=== PATIENT | male | born 1980 | race Caucasian/White ===

== ENCOUNTER 2018-11-11 16:40 | Inpatient (IN) ==
[2018-11-11] MEDS ORDERED: M.V.I.-12 10 ML, FOLIC ACID 1 MG, MAGNESIUM SULFATE 1 GM, THIAMINE 100 MG in NS 1,000 ML IV ONE (17:05)
[2018-11-11] MEDS ORDERED: ZOFRAN IM ONE (17:12)
[2018-11-11] MEDS ORDERED: ATIVAN IV ONE (17:17)
--- NOTE | 2018-11-11 17:19 | PROVIDER DOCUMENTATION ---
HPI-General Adult - General Chief Complaint: Alcohol Withdrawal Stated Complaint: ALCOHOL WITHDRAWAL Time Seen by Provider: 11/11/18 16:54 Source: patient Allergies/Adverse Reactions: Patient Allergies Allergy/AdvReac Type Severity Reaction Status Date / Time No Known Allergies Allergy Verified 11/11/18 17:13 Home Medications: Home Medication List Medication Instructions Recorded Confirmed Last Taken Type Bupropion X.l. [Wellbutrin Xl] 150 mg PO BID 02/04/16 11/11/18 07/06/18 History Fluoxetine HCl [Prozac] 20 mg PO DAILY 11/11/18 11/11/18 Unknown History - History of Present Illness -Gen Adult Nature of Presenting Problems: PATIENT C/O ALCOHOL WITHDRAWL SYMPTOMS, NAUSEA, VOMITED 4 TIMES, SHAKING, PALP ITATION, ANXIETY. HE SAID HE DRINK 1 BOTTLE OF WHISKY DAILY LAST TIME WAS YESTERDAY. REPORT HANGOVER SYMPTOMS AND VOMITING EVERY MORNING LATELY. DENIES ABDOMINAL PAIN, DIARRHEA OR CONSTIPATION. Review of Systems - Adult - REVIEW OF SYSTEMS - ADULT Constitutional: reports: no symptoms reported Eyes: reports: no symptoms reported Ears, Nose, Mouth & Throat: reports: no symptoms reported Cardiovascular: reports: palpitations Respiratory: reports: no symptoms reported Gastrointestinal: reports: nausea, vomiting. denies: abdominal pain Genitourinary: reports: no symptoms reported Musculoskeletal: reports: no symptoms reported Past History - Adult - PAST MEDICAL HISTORY-ADULT Review of Records: reports: Old Records Reviewed, Nursing Assessment Review, Medications Reviewed, Social history reviewed & non-contributory. Major Childhood Illnesses: reports: denies history Cardiovascular: reports: HTN Respiratory: reports: denies history Gastrointestinal: reports: denies history Genitourinary: reports: denies history Musculoskeletal: reports: denies history Neurological: reports: denies history Psychiatric: reports: depression Endocrine/Immune: reports: denies history Other Conditions: reports: denies history - PRIOR SURGERIES/PROCEDURES Surgical/Procedure History: reports: none - IMMUNIZATION STATUS Childhood Immunizations: See Nurse Assessment Flu Vaccine: See Nurse Assessment - FAMILY HISTORY Family History: reviewed, not pertinent Physical Exam-General - PHYSICAL EXAM-ADULT Initial Vital Signs Reviewed: Yes - CONSTITUTIONAL General Appearance: alert, mild distress - EYES Eyes: PERRL/EOMI - HEAD, EARS, NOSE, MOUTH & THROAT HENMT: normocephalic/atraumatic, moist mucous membranes, normal ENT inspection - NECK Neck: non-tender, full range of motion, supple - RESPIRATORY Respiratory: chest non-tender, lungs clear, normal breath sounds - CARDIOVASCULAR Cardiovascular: no edema, tachycardia. negative: no murmur - GASTROINTESTINAL (ABDOMEN) Abdominal Exam: normal bowel sounds, non tender, soft - MUSCULOSKELETAL Back Exam: normal inspection, no CVA tenderness - SKIN Integumentary: normal color, normal turgor - NEUROLOGIC Neurologic: grossly normal, other (tremor B/L UE) Progress - PLAN OF CARE/RESULTS Progress/Plan/Lab Results: Vital Signs - 8 hr 11/11/18 16:43 Temperature 98.5 F Pulse Rate 125 H Respiratory Rate 20 Blood Pressure 176/112 O2 Sat by Pulse Oximetry 97 Orders Category Date Time Status CBC WITH ELECTRONIC DIFF [HEME] Stat Lab 11/11/18 17:13 Ordered CMP [COMPREHENSIVE METABOLIC PANEL] [CHEM] Stat Lab 11/11/18 17:13 Ordered MAGNESIUM [CHEM] Stat Lab 11/11/18 17:13 Ordered PHOSPHORUS [CHEM] Stat Lab 11/11/18 17:13 Ordered URINALYSIS W/POSS RFLX CULT [URINALYSIS] Stat Lab 11/11/18 17:07 Uncollected URINE DRUG SCREEN Stat Lab 11/11/18 17:07 Uncollected Mvi [M.v.i.-12] 10 ml Med 11/11/18 17:05 Active Folic Acid 1 mg Magnesium Sulfate 1 gm Thiamine 100 mg 0.9% Sodium Chloride Inj [Ns] 1,000 ml IV NOW Ondansetron [Zofran] Med 11/11/18 17:12 Discontinued 8 mg IM NOW ONE Result Diagrams: 11/11/18 17:17 11/11/18 17:17 - REASSESSMENT Reassessment #1 Time Reassessed: 18:20 Status: improving (HR down from 125 to 101, slight shaking. patient ok with admission.) Reassessment #2 Time Reassessed: 19:41 Status: other (Patient admitted for .) - CONSULTS/PCP/HOSPITALIST Notification #1 *Consult/PCP/Hospitalist*: JAYSON Seay admitting for Hospitalist Time Discussed: 18:39 Consult Disposition: Admit (Hx, PE and patient care discussed. accepted.) Departure - Departure Date of Disposition Decision: 11/11/18 Time of Disposition Decision: 18:39 DIAGNOSIS: Hypomagnesemia Alcohol dependence with withdrawal Qualifiers: Complication of substance-induced condition: uncomplicated Qualified Code(s): F10.230 - Alcohol dependence with withdrawal, uncomplicated Disposition: ADMITTED INPATIENT 09 Certified Medical Emergency: Emergent Condition: Serious Referrals and Follow-Ups: None,PCP [Primary Care Provider] - - Critical Care Note This patient required my direct & personal management of CC.: No Attestation - Physician/ EULALIO Attestation Patient care was provided by Advanced Practice Provider:: No The physician spent face to face time with patient:: Yes Advanced Practice Provider documentation review:: Supervising physician onsite and consulted in the evaluation and care of this patient. The physician did have a face to face encounter with the patient.
[2018-11-11 17:27] LABS: BASO# 0.05 X1000 (0.0-0.2); BASO% 0.4 % (0.0-0.8); EOS# 0.05 X1000 (0.0-0.7); EOS% 0.4 % (0.0-10.0); HEMATOCRIT 37.8 % (42.0-52.0); HEMOGLOBIN 11.5 g/dL (14.0-18.0); IMM GRAN# 0.03 X1000 (0.0-0.04); IMM GRAN% 0.3 % (0.0-0.5); LYMPH# 0.88 X1000 (1.2-3.4); LYMPH% 7.9 % (20.5-51.1); MCH 21.7 PG (27-31); MCHC 30.4 g/dL (33-37); MCV 71.3 FL (81-99); MONO# 1.25 X1000 (0.11-0.59); MONO% 11.2 % (1.7-9.3); MPV 9.9 FL (7.4-10.4); NEUT# 8.86 X1000 (1.4-6.5); NEUT% 79.8 % (42.2-75.2); PLT 371 X1000 (130-400); RDW 19.5 % (11.5-14.5); WBC 11.12 X1000 (4.8-10.8)
[2018-11-11 17:39] LABS: AGAP 18; ALB/GLOB RATIO 1.4; ALBUMIN 4.6 g/dL (3.5-5.0); ALKALINE PHOSPHATASE 75 U/L (32-122); BUN 4 mg/dL (8-22); CALCIUM 8.4 mg/dL (8.8-10.2); CHLORIDE 92 mmol/L (98-107); COSMO 273; CREATININE 0.7 mg/dL (0.7-1.2); ESTIMATED GFR > 60; GLUCOSE 109 mg/dL (70-104); GOT 149 U/L (10-34); GPT 134 U/L (10-44); MAGNESIUM 1.2 mg/dL (1.5-2.7); PHOSPHORUS 3.3 mg/dL (2.7-4.5); POTASSIUM 3.2 mmol/L (3.5-5.1); SODIUM 138 mmol/L (136-145); TCO2 28 mmol/L (25-35); TOTAL BILIRUBIN 0.81 mg/dL (0.20-1.00); TOTAL PROTEIN 7.9 g/dL (6.3-8.3)
[2018-11-11] MEDS ORDERED: MAGNESIUM SULFATE 4 GM/S.W.I. 4 GM/100 ML IVPB IV ONE (17:47)
[2018-11-11 18:13] LABS: AMYLASE 121 U/L (20-200)
[2018-11-11 18:19] LABS: LIPASE 58 U/L (13-60)
[2018-11-11 19:29] LABS: URINE SOURCE CATH
[2018-11-11 19:49] LABS: UR AMPHETAMINES QUAL NONE DETECTED (NONE DETECT); UR BARBITUATES QUAL NONE DETECTED (NONE DETECT); UR BENZODIAZEPIN QUAL NONE DETECTED (NONE DETECT); UR CANNABINOIDS QUAL NONE DETECTED (NONE DETECT); UR COCAINE QUAL NONE DETECTED (NONE DETECT); UR METHADONE QUAL NONE DETECTED (NONE DETECT); UR OPIATES QUAL NONE DETECTED (NONE DETECT); UR OXYCODONE QUAL NONE DETECTED (NONE DETECT); UR PCP QUAL NONE DETECTED (NONE DETECT)
[2018-11-11 20:15] LABS: BILIRUBIN URINE NEGATIVE (NEGATIVE); BLOOD URINE NEGATIVE (NEGATIVE); COLOR YELLOW; GLUCOSE URINE NEGATIVE (NEGATIVE); KETONE URINE 10 mg/dL (NEGATIVE); LEUKOCYTES URINE NEGATIVE (NEGATIVE); NITRITE URINE NEGATIVE (NEGATIVE); PH URINE 7.5; PROTEIN URINE 50 mg/dL (NEGATIVE); TURBIDITY URINE CLEAR (CLEAR); UROBILINOGEN URINE 4 mg/dL (NORMAL)
[2018-11-11 20:20] LABS: PTT 28.9 Seconds (22.3-41.8)
[2018-11-11 20:20] LABS: UR EPITHELIAL CELLS <10 /HPF (<10); URINE BACTERIA NEGATIVE /HPF; URINE RBC <10 /HPF (<10); URINE WBC <10 /HPF (<10)
[2018-11-11 20:36] LABS: URINE CASTS NONE SEEN; URINE CRYSTALS NONE SEEN; URINE SMALL ROUND CELLS NONE SEEN; URINE YEAST NONE SEEN
[2018-11-11] MEDS ORDERED: TYLENOL PO PRN (21:39)
[2018-11-11] MEDS ORDERED: PHENERGAN IV PRN (21:39)
[2018-11-11] MEDS ORDERED: SODIUM CHLORIDE 0.9% INJ PRN (21:39)
[2018-11-11] MEDS ORDERED: SODIUM CHLORIDE 0.9% INJ SCH (21:45)
[2018-11-11] MEDS ORDERED: KLOR-CON PO ONE (21:52)
[2018-11-11] MEDS: LIBRIUM PO SCH (22:41)
[2018-11-11] MEDS: PROTONIX IV SCH (22:41)
[2018-11-11] MEDS: ATIVAN IV PRN (23:40)
--- NOTE | 2018-11-12 00:31 | HISTORY AND PHYSICAL ---
PRIMARY CARE PROVIDER: [place] in [place]. DATE AND TIME: 11/11/2018 at 2000. CHIEF COMPLAINT: Alcohol withdrawal. HISTORY OF PRESENT ILLNESS: Mr. Carmona is a 38-year-old, male, in the past medical history most notable for depression, anxiety, and alcohol abuse. He presented to the ER this evening with reports that he is wanting to quit drinking, though is experiencing withdrawal symptoms of having nausea, vomiting, and tremors. The patient states that since age 29 he has been abusing alcohol. He was admitted in January 2018 for alcohol withdrawal, and after being discharged he did quit drinking for a period of approximately month and a half, though unfortunately, did start back drinking. The patient states that he normally takes Wellbutrin and Prozac, though his physician at the [place] after his alcohol withdrawal treatment did reduce the dose of his Prozac. The patient states that he did try to get his physician to increase his dosage back up to his previous amount, though unfortunately, his physician would not do this. He states that since that time he feels as though his medication dosages need to be adjusted and he has been self-medicating with alcohol to cope with this. He initially did drink lesser amounts of alcohol daily, though at this time he drinks 750 mL of whiskey daily. He denies any other psychiatric history besides his depression and anxiety. He denies any inpatient treatment for psychiatric illness. He denies any previous self-harm or attempted suicide. He also denies any current suicidal or homicidal ideations. The patient states that his last drink was at midnight last night, November 10. Other than his reported symptoms, as previously mentioned, the patient states that he does have nausea and vomiting frequently on a daily basis, up to a couple to several times a day, though he denies any hematemesis, hematochezia or melena. He denies any previous known history of gastrointestinal bleeding. Upon evaluation in the ER, the patient was noted to be having nausea, he was very shaky as well. The patient is very cooperative. He was alert and oriented to person, place, time, situation, was able to answer and follow commands appropriately. He did have some mild electrolyte abnormalities with a potassium of 3.2 and a magnesium of 1.2. This is currently being replaced in the ER. He received a banana bag as well as some Ativan in the ER and states that his symptoms have improved at this time. The patient will be placed inpatient admission for further treatment and evaluation. REVIEW OF SYSTEMS: A 14-point review of systems was conducted with the patient and all were negative, except for pertinent positives mentioned in above HPI. PAST MEDICAL HISTORY: 1. Anxiety. 2. Depression. 3. Alcohol abuse. PAST SURGICAL HISTORY: The patient denies any previous surgeries. SOCIAL HISTORY: He denies any previous tobacco or illicit drug use, though he does, as previously mentioned in above HPI, drink at this time 750 mL of whiskey daily. He has been abusing alcohol since age 29. 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 FAMILY HISTORY: Positive for his mother having a history of polycythemia vera and an unknown cancer many years ago. His father has a history of diabetes mellitus. He does have a sister who also has diabetes mellitus, and a younger brother who is healthy. ALLERGIES: Patient has no known allergies. HOME MEDICATIONS: 1. He takes Wellbutrin XL 150 mg p.o. b.i.d. 2. Prozac 20 mg p.o. daily. DIAGNOSTIC DATA/LABORATORY RESULTS: White blood cell count is 11,120, hemoglobin 11.5, hematocrit 37.8, platelet count is 371,000. PT 14, INR 1, PTT is 28.9. Sodium 138, potassium 3.2, chloride 92, serum bicarb is 28, BUN 4, creatinine 0.7. Glucose 109, calcium 8.4, phosphorus 3.3, magnesium 1.2. Liver function tests are within normal limits, except for AST and ALT are both elevated some. Amylase 121, lipase 58. Urinalysis was obtained via catheter, was positive for protein, ketones, though was negative for glucose, blood, nitrites, leukocytes, white blood cells, and bacteria. Urine drug screen was negative. EKG showed a normal sinus rhythm, though was noted to have a prolonged QT with a QTc of 490. He did have a ventricular rate of 100. PHYSICAL EXAMINATION: VITAL SIGNS: Temperature 98.5 degrees, heart rate 100, blood pressure 142/105, oxygen saturation was 96% room air, respirations were 18. GENERAL: Mr. Carmona is a pleasant, 38-year-old, male, he was resting in the ER stretcher, though he was a little shaky. Upon examination, he was alert and oriented to person, place, time, and situation, and was able answer questions appropriately. HEENT: Head is atraumatic, normocephalic. Pupils are equal, round, reactive to light, were 4 mm bilaterally and brisk. Oral mucosa is moist. Oropharynx clear. NECK: Supple. Trachea midline. CARDIOVASCULAR: Patient has S1, S2. No murmurs, gallops, rubs appreciated, with a regular rate and rhythm. PULMONARY: Patient has symmetrical chest expansion bilaterally. Lung sounds are clear to auscultation in bilateral full bingham. ABDOMEN: Soft, nondistended, nontender. Bowel sounds are present in all 4 quadrants, were normoactive. EXTREMITIES: No cyanosis, clubbing, or edema noted. Pulse, motor, and sensory were intact in all extremities. Pedal pulses and radial pulses were 2+ bilaterally. INTEGUMENTARY: The patient's skin is pink, warm, and dry. NEUROLOGICAL: Patient is alert and oriented to person, place, time, and situation. He is able to move all extremities. He does have a slight tremor noted, though other than this, there did not appear to be any focal neurological deficits ASSESSMENT AND PLAN: 1. Alcohol withdrawal. For this we will place Ativan IV p.r.n. We will also place him on Librium 25 mg p.o. q.6 hours, and we will closely monitor him for any worsening signs of alcohol withdrawal. He will be placed in ICU for close monitoring. We will place him on continuous cardiac telemetry, and will monitor his cardiovascular status as well as his blood pressure closely. 2. Alcohol abuse. The patient has expressed that he does want to quit drinking. We have placed community mental health social worker and case management consults so the patient can obtain assistance with continuing possible outpatient treatment and counseling upon discharge. We will continue to discuss and correctional counselor/case manager the patient on the importance of alcohol cessation. 3. Gastrointestinal prophylaxis. Will be provided with Protonix 40 mg IV q.12 hours. 4. Deep vein thrombosis prophylaxis. Will be provided with sequential compression devises. The patient has been placed in ICU for close monitoring. We will repeat a CBC, CMP, magnesium and phosphorus tomorrow morning. We will do daily banana bags. Further orders and recommendations pending hospital course, diagnostic studies, and physician evaluation. Dictated by JAMI Alonso for Cipriano Alcantar MD I have performed a face to face diagnostic evaluation. Labs/ xrays - reviewed. Exam- chest- clear A/P- Alchohol withdrawal- Admit, supportive care, IV ativan prn. Dr. Alcantar cc: Cipriano Alcantar MD [facility]
[2018-11-12] MEDS: LIBRIUM PO SCH ×2 (04:56→09:17)
[2018-11-12] MEDS: ATIVAN IV PRN ×2 (06:10→09:17)
[2018-11-12 06:45] LABS: BASO# 0.04 X1000 (0.0-0.2); BASO% 0.5 % (0.0-0.8); EOS% 1.1 % (0.0-10.0); HEMOGLOBIN 10.5 g/dL (14.0-18.0); LYMPH# 1.12 X1000 (1.2-3.4); LYMPH% 12.7 % (20.5-51.1); MCH 21.7 PG (27-31); MCV 72.5 FL (81-99); MONO# 1.05 X1000 (0.11-0.59); MONO% 11.9 % (1.7-9.3); NEUT# 6.54 X1000 (1.4-6.5); NEUT% 73.8 % (42.2-75.2); PLT 311 X1000 (130-400); RBC 4.83 XMIL (4.7-6.1); RDW 19.3 % (11.5-14.5); WBC 8.85 X1000 (4.8-10.8)
[2018-11-12 06:58] LABS: AGAP 16; ALB/GLOB RATIO 1.3; ALBUMIN 3.8 g/dL (3.5-5.0); ALKALINE PHOSPHATASE 65 U/L (32-122); BUN 4 mg/dL (8-22); CALCIUM 8.1 mg/dL (8.8-10.2); CHLORIDE 97 mmol/L (98-107); COSMO 278; CREATININE 0.8 mg/dL (0.7-1.2); ESTIMATED GFR > 60; GLUCOSE 98 mg/dL (70-104); GOT 77 U/L (10-34); GPT 99 U/L (10-44); PHOSPHORUS 3.1 mg/dL (2.7-4.5); POTASSIUM 3.1 mmol/L (3.5-5.1); SODIUM 141 mmol/L (136-145); TCO2 28 mmol/L (25-35); TOTAL BILIRUBIN 1.12 mg/dL (0.20-1.00); TOTAL PROTEIN 6.7 g/dL (6.3-8.3)
[2018-11-12] MEDS ORDERED: POTASSIUM CHLORIDE 60 MEQ in NS 500 ML IV ONE (07:20)
[2018-11-12] MEDS ORDERED: M.V.I.-12 10 ML, FOLIC ACID 1 MG, MAGNESIUM SULFATE 1 GM, THIAMINE 100 MG in NS 1,000 ML IV SCH (09:00)
[2018-11-12] MEDS: PROTONIX IV SCH (09:17)
[2018-11-12 14:17] VITALS: BP 142/104
--- NOTE | 2018-11-12 22:04 | DISCHARGE SUMMARY ---
ADMISSION DATE: 11/11/2018 DISCHARGE DATE: 11/12/2018 FINAL DISCHARGE DIAGNOSES: 1. Alcohol withdrawal. 2. Acute alcohol intoxication. 3. Hypokalemia. 4. Depression. 5. Anxiety disorder. HOSPITAL COURSE: Mr. Carmona is a 38-year-old male with a history of heavy alcohol abuse who presented to the ER with concerns about being in withdrawal. The patient was admitted to the hospitalist service and placed in the medical ICU. He received Ativan as well as Librium to assist with his withdrawal symptoms. Also, the patient's potassium was replenished. The patient stated that he felt better and wanted to be discharged home. The patient was extensively counseled about the importance of alcohol cessation. He was also advised that if he was going to be on Librium he could not drink alcohol. The patient stated that he understood. DISCHARGE MEDICATIONS: 1. Librium taper. 2. Wellbutrin XL 150 mg p.o. twice a day. 3. Prozac 20 mg p.o. daily. DISCHARGE DIET: Low-sodium diet. ACTIVITY: As tolerated. FOLLOWUP INSTRUCTIONS: The patient has been advised to contact Alcoholics Anonymous for further assistance with alcohol cessation. cc: Holly Eddy MD
--- NOTE | 2018-11-14 10:34 | EKG Report ---
Test Performed on : 11/11/2018 8:41:11 PM Test Reason : ED. No order in [place] Blood Pressure : / mmHG Vent. Rate : 100 BPM Atrial Rate : 100 BPM P-R Int : 136 ms QRS Dur : 098 ms QT Int : 380 ms P-R-T Axes : 029 014 030 degrees QTc Int : 490 ms Normal sinus rhythm. Prolonged QT Abnormal ECG When compared with ECG of 14-FEB-2018 15:12, No significant change was found Unconfirmed Result
== END 2018-11-12 15:05 | disposition home or self-care (01) | DRG 897 ==
LOC: ED 16:40 → ICU 20:21 → SUATTDRO 20:21
PROVIDERS: ATTEND Internal Medicine
CPT/HCPCS: 80053; 80101; 80301; 80307; 80324; 80345; 80346; 80353; 80358; 80361; 80365; 81001; 82150; 83690; 83735; 83992; 84100; 84132; 85025; 85610; 85730; 93005; 96365; 96366; 96367; 96375; 99285; A9270; C9113; G0431; G0434; G0479; G0480; J2060; J2405; J3411; J3475; J3480; J7030; J7040; S0164

== ENCOUNTER 2019-05-28 00:05 | Inpatient (IN) ==
[2019-05-28] MEDS ORDERED: NS 1,000 ML IV ONE ×2 (00:38→00:43)
--- NOTE | 2019-05-28 00:43 | PROVIDER DOCUMENTATION ---
HPI-Abdominal Pain/GI Problem - General Chief Complaint: Vomiting Blood Stated Complaint: ALCOHOLIC/VOMITING BLOOD Time Seen by Provider: 05/28/19 00:38 Source: patient Allergies/Adverse Reactions: Patient Allergies Allergy/AdvReac Type Severity Reaction Status Date / Time No Known Allergies Allergy Verified 11/11/18 17:13 Home Medications: Home Medication List Medication Instructions Recorded Confirmed Last Taken Type Bupropion X.l. [Wellbutrin Xl] 150 mg PO BID 02/04/16 05/28/19 07/06/18 History Fluoxetine HCl [Prozac] 30 mg PO DAILY 11/11/18 05/28/19 Unknown History Hydroxyzine HCl 25 mg PO PRN PRN 05/28/19 05/28/19 Unknown History Methocarbamol 750 mg PO PRN PRN 05/28/19 05/28/19 Unknown History Naltrexone [Revia] 50 mg PO DAILY 05/28/19 05/28/19 Unknown History - History of Present Illness-ABD Nature of Presenting Problems: 38 yr old M, presents with several hour history of hematemesis following an abrupt end to a week's hx of binge drinking. The pt reports that he relapsed, and began binging last week, and tried to cut himself off today. Shortly after he began throwing up - first bloody content mixed with fluids he had tried to drink, then cristy red blood, then darker coffee ground material. The pat has not been able to keep anything down. He denies any chest or abdominal pain. # of Vomiting Episodes: 5 (multiple) Emesis Description: reports: red blood, coffee grounds Bruising or Bleeding Gums?: No Similar Symptoms Previously?: No Review of Systems - Adult - REVIEW OF SYSTEMS - ADULT Constitutional: reports: no symptoms reported Eyes: reports: no symptoms reported Ears, Nose, Mouth & Throat: reports: no symptoms reported Cardiovascular: reports: palpitations Respiratory: reports: no symptoms reported Gastrointestinal: reports: nausea, vomiting Genitourinary: reports: no symptoms reported Musculoskeletal: reports: no symptoms reported Neurological: reports: no symptoms reported Psychiatric: reports: alcohol/drug dependence Hematologic/Lymphatic: reports: no symptoms reported Past History - Adult - PAST MEDICAL HISTORY-ADULT Review of Records: reports: Nursing Assessment Review Major Childhood Illnesses: reports: denies history Cardiovascular: reports: HTN Respiratory: reports: denies history Gastrointestinal: reports: denies history Genitourinary: reports: denies history Musculoskeletal: reports: denies history Neurological: reports: denies history Psychiatric: reports: depression Endocrine/Immune: reports: denies history Other Conditions: reports: denies history - PRIOR SURGERIES/PROCEDURES Surgical/Procedure History: reports: none - IMMUNIZATION STATUS Childhood Immunizations: See Nurse Assessment Flu Vaccine: See Nurse Assessment - FAMILY HISTORY Family History: reviewed, not pertinent Physical Exam-General - PHYSICAL EXAM-ADULT Initial Vital Signs Reviewed: Yes - CONSTITUTIONAL General Appearance: alert, moderate distress, other (visibly shaking) - EYES Eyes: PERRL/EOMI - HEAD, EARS, NOSE, MOUTH & THROAT HENMT: normocephalic/atraumatic, moist mucous membranes - RESPIRATORY Respiratory: lungs clear, normal breath sounds - CARDIOVASCULAR Cardiovascular: tachycardia - GASTROINTESTINAL (ABDOMEN) Abdominal Exam: normal bowel sounds, non tender, soft - SKIN Integumentary: diaphoresis Progress - PLAN OF CARE/RESULTS Progress/Plan/Lab Results: Vital Signs - 8 hr 05/28/19 00:27 Temperature 98.4 F Pulse Rate 151 H Respiratory Rate 20 Blood Pressure 131/97 O2 Sat by Pulse Oximetry 97 Orders Category Date Time Status CHEST-2 VIEWS [RAD] Stat Exams 05/28/19 00:[address] ABDOMEN/PELVIS W/O CONTRAST [CT] Stat Exams 05/28/19 00:42 Ordered CBC WITH ELECTRONIC DIFF [HEME] Stat Lab 05/28/19 00:38 Uncollected CMP [COMPREHENSIVE METABOLIC PANEL] [CHEM] Stat Lab 05/28/19 00:38 Uncollected TYPE & SCREEN [BBK] Stat Lab 05/28/19 00:42 Uncollected 0.9% Sodium Chloride Inj [Ns] 1,000 ml Med 05/28/19 00:38 Active IV 999 mls/hr EKG [EKG] Stat Ther 05/28/19 00:39 Ordered Result Diagrams: 05/28/19 00:47 05/28/19 00:47 - EKG 1 Time of EKG reading by physician:: 12:36 EKG Read and Signed by:: Cindy Fox Rate: 132 Rhythm: Sinus tachycardia [place]: normal QRS: normal [place] Interval: normal - XRAY 1 XRAY Study: Chest XRAY Interpretation: no acute pathology noted by me; official read pending for t he AM - CHANGE OF SHIFT REPORT (ED Provider) 1 Report Given and Care Transferred to:: Dr. Quan Time of Transfer: 01:30 (Abd U/S pending. Pt signed out to Dr. Quan.) Items Pending: Ultrasound Results Departure - Departure Date of Disposition Decision: 05/28/19 Time of Disposition Decision: 03:51 DIAGNOSIS: Hematemesis Qualifiers: Nausea presence: with nausea Qualified Code(s): K92.0 - Hematemesis Alcohol dependence with withdrawal Qualifiers: Complication of substance-induced condition: uncomplicated Qualified Code(s): F10.230 - Alcohol dependence with withdrawal, uncomplicated Disposition: ADMITTED INPATIENT 09 Certified Medical Emergency: Emergent Condition: Stable Referrals and Follow-Ups: None,PCP [Primary Care Provider] - - Critical Care Note This patient required my direct & personal management of CC.: Yes Total Time (mins): 42 Critical Care Statement: This patient required my direct personal management to treat or rule out processes, the absence of which, could potentiallly result in sudden, clinically significant life or limb threatening deterioration. Attestation - Physician/ EULALIO Attestation Patient care was provided by Advanced Practice Provider:: No The physician spent face to face time with patient:: Yes Advanced Practice Provider documentation review:: Supervising physician onsite and consulted in the evaluation and care of this patient. The physician did have a face to face encounter with the patient.
[2019-05-28] MEDS ORDERED: ATIVAN IV ONE ×4 (00:45→06:46)
[2019-05-28] MEDS ORDERED: APRESOLINE IV ONE (00:50)
[2019-05-28] MEDS ORDERED: PROTONIX 80 MG in NS 80 ML IV SCH (01:00)
[2019-05-28 01:12] LABS: BASO# 0.03 X1000 (0.0-0.2); BASO% 0.2 % (0.0-0.8); HEMATOCRIT 40.9 % (42.0-52.0); HEMOGLOBIN 13.5 g/dL (14.0-18.0); IMM GRAN# 0.03 X1000 (0.0-0.04); IMM GRAN% 0.2 % (0.0-0.5); LYMPH# 0.93 X1000 (1.2-3.4); LYMPH% 5.7 % (20.5-51.1); MCH 24.2 PG (27-31); MCV 73.2 FL (81-99); MONO% 10.5 % (1.7-9.3); NEUT# 13.56 X1000 (1.4-6.5); NEUT% 83.4 % (42.2-75.2); PLT 453 X1000 (130-400); RBC 5.59 XMIL (4.7-6.1); RDW 17.2 % (11.5-14.5); WBC 16.25 X1000 (4.8-10.8)
[2019-05-28 01:17] LABS: AGAP 26; ALB/GLOB RATIO 1.3; ALKALINE PHOSPHATASE 118 U/L (32-122); BUN 17 mg/dL (8-22); CALCIUM 9.1 mg/dL (8.8-10.2); CHLORIDE 91 mmol/L (98-107); COSMO 282; ESTIMATED GFR > 60; GLUCOSE 189 mg/dL (70-104); GOT 37 U/L (10-34); GPT 51 U/L (10-44); POTASSIUM 3.1 mmol/L (3.5-5.1); SODIUM 138 mmol/L (136-145); TCO2 21 mmol/L (25-35); TOTAL BILIRUBIN 1.05 mg/dL (0.20-1.00); TOTAL PROTEIN 8.9 g/dL (6.3-8.3)
[2019-05-28] MEDS ORDERED: ZOFRAN IV ONE (01:17)
[2019-05-28] MEDS ORDERED: M.V.I.-12 10 ML, FOLIC ACID 1 MG, MAGNESIUM SULFATE 1 GM, THIAMINE 100 MG in NS 1,000 ML IV ONE (01:23)
--- NOTE | 2019-05-28 03:08 | EKG Report ---
Test Performed on : 05/28/2019 00:36:37 AM Test Reason : CP Blood Pressure : / mmHG Vent. Rate : 132 BPM Atrial Rate : 132 BPM P-R Int : 144 ms QRS Dur : 080 ms QT Int : 382 ms P-R-T Axes : 000 033 045 degrees QTc Int : 565 ms Sinus tachycardia. Cannot rule out Inferior infarct , age undetermined Abnormal ECG When compared with ECG of 11-NOV-2018 20:41, Minimal criteria for Inferior infarct are now present Unconfirmed Result
[2019-05-28] MEDS ORDERED: POTASSIUM CHLORIDE 40 MEQ/SWI 40 MEQ/100 ML IVPB IV ONE (04:12)
[2019-05-28 04:33] LABS: MAGNESIUM 1.4 mg/dL (1.5-2.7); PHOSPHORUS 1.9 mg/dL (2.7-4.5)
[2019-05-28] MEDS: POTASSIUM CHLORIDE 20 MEQ/SWI 20 MEQ/100 ML IVPB IV SCH ×2 (04:33→06:31)
[2019-05-28 04:37] LABS: INR 1.1; PROTIME 14.3 Seconds (11.0-16.0)
[2019-05-28] MEDS ORDERED: MAGNESIUM SULFATE 1 GM/D5W 1 GM/100 ML IVPB IV ONE (06:30)
[2019-05-28] MEDS ORDERED: ZOFRAN IV PRN (06:59)
[2019-05-28] MEDS ORDERED: TYLENOL PR PRN (06:59)
--- NOTE | 2019-05-28 07:05 | HISTORY AND PHYSICAL ---
ADDENDUM: Patient seen and examined by myself. Full note dictated and discussed with nurse practitioner. Patient notes that he has a longstanding history of alcoholism. He has actually been in rehab for 2 months, has been sober for 2 months. Approximately a week ago, he started drinking heavily. He has been in DTs before. Notes that he stopped this morning and started having significant vomiting which led to bleeding. Started having tremors which he currently still has. He has been given Ativan 0.5 and then 1 mg in the ER approximately 5 hours ago. His tremors are starting to come back. He has not had any hematemesis or any emesis at all for the past 4 to 5 hours. We are going to admit him to the hospital for now, keep him NPO, recheck his blood count. If it has not stopped, we can certainly try liquids and attempt to place him on high-dose Librium and taper down. Currently, we are going to keep him NPO, use IV Ativan, and we will follow. Discussed with patient the need for continued outpatient counseling. Discussed that he needs to be in AA daily, needs a sponsor. He needs to continue taking his naltrexone every single day. Does not need to stop it regardless of whether he is having cravings or not. We will not restart his Wellbutrin, given he is in alcohol withdrawal, and both of those can increase seizure opportunity. Please see full note. cc: Constantino Medeiros MD
--- NOTE | 2019-05-28 07:45 | Diag Imaging Result Doc PS360 ---
CHEST-2 VIEWS - 05/28/2019 INDICATION: SOB COMPARISON: None FINDINGS: The superior right hilum is unclear, as there is an EKG lead projecting right over it. No infiltrates. Heart size and pulmonary vascularity is normal. No pneumothorax or pleural effusion. IMPRESSION: Cannot exclude abnormal right hilum. Recommend a follow-up upright two view chest x-ray with no EKG leads in the future. Electronically signed by Amando Harrison 05/28/2019 7:42 AM
--- NOTE | 2019-05-28 07:48 | Diag Imaging Result Doc PS360 ---
US ABDOMEN-COMPLETE - 05/28/2019 INDICATION: CT findings; gallbladder sludge COMPARISON: CT from earlier today FINDINGS: There is severe diffuse fatty change of the liver. The pancreas is obscured by bowel gas. The gallbladder, spleen, and both kidneys are normal. No tenderness over the gallbladder. Common bile duct measures 4 mm. Aorta, IVC, and main portal vein are patent. IMPRESSION: Severe fatty change of the liver. Normal gallbladder. Electronically signed by Amando Harrison 05/28/2019 7:46 AM
--- NOTE | 2019-05-28 07:51 | Diag Imaging Result Doc PS360 ---
CT ABDOMEN/PELVIS W/O CONTRAST - 05/28/2019 INDICATION: Abdominal Pain COMPARISON: None FINDINGS: The lung bases are clear and the heart size is normal. There is severe diffuse fatty change of the liver. Liver is otherwise unremarkable. The gallbladder is filled with some hyperdense material. No surrounding inflammation. No gallbladder distention. There is a small 2 mm nonobstructing left renal stone. The right kidney is normal. Other abdominal organs are all normal. No bowel obstruction or inflammation. Normal appendix. Urinary bladder, prostate, and rectum are normal. Bones are intact. IMPRESSION: 1. Severe fatty liver. 2. Hyperdense gallbladder contents may represent gallbladder sludge or dense bile. No inflammatory changes or gallbladder distention. 3. Nonobstructing left renal stone. This exam was performed using automated exposure control, adjustment of mA or kV according to patient size, and/or use of iterative reconstruction technique Electronically signed by Amando Harrison 05/28/2019 7:49 AM
[2019-05-28 08:46] LABS: UR AMPHETAMINES QUAL NONE DETECTED (NONE DETECT); UR BARBITUATES QUAL NONE DETECTED (NONE DETECT); UR BENZODIAZEPIN QUAL NONE DETECTED (NONE DETECT); UR CANNABINOIDS QUAL NONE DETECTED (NONE DETECT); UR COCAINE QUAL NONE DETECTED (NONE DETECT); UR METHADONE QUAL NONE DETECTED (NONE DETECT); UR OPIATES QUAL NONE DETECTED (NONE DETECT); UR OXYCODONE QUAL NONE DETECTED (NONE DETECT); UR PCP QUAL NONE DETECTED (NONE DETECT)
[2019-05-28 08:49] LABS: HEMATOCRIT 32.7 % (42.0-52.0); HEMOGLOBIN 10.3 g/dL (14.0-18.0); MCH 23.8 PG (27-31); MCHC 31.5 g/dL (33-37); MCV 75.7 FL (81-99); MPV 9.6 FL (7.4-10.4); RBC 4.32 XMIL (4.7-6.1); WBC 12.05 X1000 (4.8-10.8)
[2019-05-28] MEDS: NS 1,000 ML IV SCH ×3 (08:55→20:40)
--- NOTE | 2019-05-28 11:09 | HISTORY AND PHYSICAL ---
PRIMARY CARE PROVIDER: [facility] CHIEF COMPLAINT: Vomiting blood. HISTORY OF PRESENT ILLNESS: Mr. Carmona is a 38-year-old male who has been treated at our facility in the past for alcohol abuse and withdrawal. The patient states that he had quit drinking, he had actually received rehab treatment and quit drinking for approximately a few months. The patient states a week ago that he had the urge to drink, and decided to go to the liquor store and bought a fifth of whiskey. He states that since that time, every day for the past week, he has drank approximately 750 mL of whiskey daily. The patient reports that yesterday morning was his last drink of alcohol. He states that he did stop drinking due to every time he would drink, not only alcohol, but even water or a soda, that he would immediately vomit the liquid back up. He states that initially, he was having emesis that was the color of what he drank, though this did begin to be coffee-grounds emesis in appearance, and he did report some cristy bright red blood in his emesis at times. The patient is reporting just some very slight abdominal pain actually in the periumbilical area. He denies any epigastric pain. He denied any hematochezia or melena. He denies any other fsox-dbs-ddxxtst medication use, such as aspirin or NSAIDs. He denies any previous known history of any gastrointestinal bleeding in the past. The patient does report a history of alcohol withdrawal in the past with delirium tremens. He denies any headache, dizziness, chest pain, shortness of breath, diarrhea, dysuria, or pain, numbness, or tingling in extremities. Upon arrival to the ER, the patient was noted to be quite tachycardic with a heart rate of 150. He was also noted to be having tremors, very anxious as well. They did perform a chest x-ray, which did report that they could not exclude an abnormal right hilum. They did recommend a followup upright 2-view chest x-ray. We also did perform an abdomen and pelvis CT without contrast, which did report a severe fatty liver and hyperdense gallbladder contents, which may represent gallbladder sludge. A subsequent ultrasound of the abdomen was performed, which did show severe fatty change of the liver, though he did have a normal gallbladder. The patient is slightly anemic. Upon repeat hemoglobin and hematocrit, his hemoglobin did drop a little. He is currently at 10.3 and 32.7, though is not at the point of requiring a transfusion at this time. Since being given fluids in the ER, his heart rate has improved and is currently in the low 100s. He is hemodynamically stable. His blood pressures have been within normal limits. He has not had any further vomiting episodes since arriving to the ER. He did have some mild electrolyte abnormalities of hypokalemia and hypomagnesemia, as well as some transaminitis. He has received IV magnesium and potassium for correction of his electrolyte abnormalities. Given the patient's acute upper gastrointestinal bleed and his alcohol withdrawal symptoms, he has been placed in the ICU for close monitoring. REVIEW OF SYSTEMS: A 14-point review of systems was conducted with the patient, and all were negative, except for pertinent positives mentioned above in the HPI. PAST MEDICAL HISTORY: 1. Anxiety. 2. Depression. 3. Alcohol abuse. PAST SURGICAL HISTORY: The patient denies any previous surgery. SOCIAL HISTORY: The patient denies any previous tobacco or illicit drug use, though he does have a history of alcohol abuse. He previously drank 750 mL of whiskey daily. He had quit for a few months and did receive rehab treatment as well, though unfortunately did have the urge to drink and did go and buy a fifth of whiskey, and since that time, he reports that every day for the past week, he has drank 750 mL of whiskey daily. He has been having problems with alcohol abuse since age 29. The patient expressed that he does want to get better and that he does want to be discharged as soon as possible. He was concerned that he has missed a lot of work secondary to his alcoholism. FAMILY HISTORY: Positive for his mother having a history of polycythemia vera and an unknown cancer many years ago. His father has a history of diabetes mellitus. He also has a [*] who has diabetes mellitus, and a younger brother who is otherwise known to be healthy. ALLERGIES: The patient has no known allergies. HOME MEDICATIONS: 1. Wellbutrin XL 150 mg p.o. b.i.d. 2. Prozac 30 mg p.o. daily. 3. He also reports that he has had recent prescriptions for naltrexone, hydroxyzine, and melatonin. DIAGNOSTIC DATA: White blood cell count is 16,250, hemoglobin 13.5, hematocrit 40.9, platelet count is 453,000. PT 14.3, INR 1.1. Sodium 138, potassium 3.1, chloride 91, serum bicarb 21, BUN 17, creatinine 1, GFR greater than 60, glucose 189, calcium 9.1. Phosphorus 1.9, magnesium 1.4. Liver function tests are elevated, except for alkaline phosphatase. Total bilirubin is 1.05, AST 37, ALT 51, alkaline phosphatase is 118. Urine drug screen was negative. Serum alcohol is 0. EKG showed sinus tachycardia at a rate of 132 with a QTc of 565. Chest x-ray did not show any pneumothorax, pleural effusion, or infiltrates, though did show a possible abnormal right hilum. I did recommend a followup 2-view chest x-ray. CT abdomen and pelvis without contrast did show severe fatty liver and hyperdense gallbladder contents, which may represent gallbladder sludge or dense bile. Ultrasound abdomen did show severe fatty change of the liver, though he did have a noted normal gallbladder. PHYSICAL EXAMINATION: VITAL SIGNS: Heart rate 110, respirations 20, blood pressure 131/75, oxygen saturation is 98% on room air. GENERAL: Mr. Carmona is a very pleasant, 38-year-old, male. He was resting in the ER stretcher. He was in no acute distress, though did appear to be slightly anxious and was having some tremors upon my examination, though he was alert and oriented x3. He was able to follow commands and answer questions appropriately. HEENT: Head is atraumatic, normocephalic. Pupils were 4 to 5 mm bilaterally, were equal, round, and reactive, and were brisk. Oral mucosa was slightly dry. He did have some dry blood noted to the inside of his mouth and his lips. NECK: Supple. Trachea midline. CARDIOVASCULAR: The patient has S1, S2 present. No murmurs, gallops, or rubs appreciated, with a slightly tachycardic rate that is regular. PULMONARY: The patient has symmetrical chest expansion bilaterally. Lung sounds are clear to auscultation in bilateral full bingham. ABDOMEN: Soft, nontender, nondistended. Bowel sounds are present in all 4 quadrants, were normoactive. EXTREMITIES: No cyanosis or edema noted. Pulse, motor, and sensory were intact in all extremities. Radial and pedal pulses were 3+ bilaterally. INTEGUMENTARY: The patient's skin color is slightly pale, though is dry and intact. NEUROLOGICAL: The patient is alert and oriented to person, place, time, and situation. He is able to move all extremities. He did have a slight tremor noted to bilateral hands, though other than this, he had no other focal neurological deficits noted. ASSESSMENT AND PLAN: 1. Suspected upper gastrointestinal bleed. The patient reports that he has been having emesis that has coffee-ground appearance to a couple episodes that he reports that he had bright red emesis. He does report that he has been abusing alcohol daily, though denied any other over- the-counter nonsteroidal anti-inflammatory drug use. The patient is slightly anemic. He was quite tachycardic upon arrival, though after fluid boluses and administration of Ativan in the emergency room, the patient's heart rate has improved. He is hemodynamically stable at this time. We will continue to monitor his hemoglobin and hematocrit closely with every 6 hour blood draws. We will transfuse if necessary. We will continue with intravenous hydration with normal saline at 125 mL/h. He did receive 2 liters of normal saline bolus in the emergency room and a banana bag. He will be nothing by mouth, and we have placed a consult with Dr. Johnson of Gastroenterology. Will await his evaluation and further recommendations for management. 2. Anemia. This is likely secondary to his gastrointestinal bleed. Will continue with treatment as mentioned above. 3. Alcohol withdrawal. The patient is exhibiting some symptoms of alcohol withdrawal, such as tremors. We will continue to monitor this closely. He will be nothing by mouth at this time, so we will provide Ativan 1 mg every 2 hours. He will be placed in the intensive care unit for close monitoring. We have implemented aspiration and seizure precautions. He will receive a daily banana bag as well. He did have some mild hypokalemia and hypomagnesemia. These have been replenished, and we will repeat a BMP, magnesium, and phosphorus later on this afternoon as well as tomorrow morning. Will continue to follow closely. 4. Fluid volume depletion. As previously mentioned, he did receive normal saline boluses, banana bag, and will have continuous intravenous fluids. We will continue to monitor closely, though at this time, he is hemodynamically stable. 5. Hypokalemia. This has been replaced with 40 mEq of intravenous potassium. We will recheck later on this afternoon. 6. Hypomagnesemia. This has been replaced as well with 1 gram of magnesium sulfate. Will recheck this as well later on this afternoon. 7. Transaminitis. We have ordered a hepatitis profile. The patient's abdominal ultrasound did show severe fatty change of the liver. 8. Deep vein thrombosis prophylaxis will be provided with sequential compression devices. The patient has been placed in the intensive care unit for close monitoring. Will do strict intake and output, vital signs per intensive care unit protocol. Will closely monitor his hemodynamic status. He will be nothing by mouth at this time. Further orders and recommendations pending hospital course, diagnostic studies, and physician evaluation. Dictated by JAMI Alonso for Constantino Medeiros MD cc: Constantino Medeiros MD
--- NOTE | 2019-05-28 11:16 | GASTROENTEROLOGY CONSULTATION ---
DATE: 05/28/2019 REASON FOR CONSULTATION: Hematemesis. HISTORY OF PRESENT ILLNESS: Mr. Anthony Carmona is a 38-year-old gentleman with a past medical history of anxiety, depression, alcohol abuse, who presents with acute onset hematemesis with scant bright red blood and coffee-grounds. The patient reports relapsing with alcohol over the last week, drinking about a fifth of whiskey daily. Yesterday morning, he developed intractable nausea and vomiting, initially with clear fluid and subsequently streaks of bright red blood and coffee-grounds after retching multiple times. He says he has vomited about 20 to 30 times in the last 24 hours. He complains of some associated lightheadedness. No chest pain, dysphagia, abdominal pain, change in bowel habits, rectal bleeding, or melena. He does take Excedrin Migraine a couple times a week for headaches. He denies any other substance use or ingestions. No blood thinners. No prior EGD or colonoscopy. No personal or family history of liver disease. No prior GI bleeding. Of note, patient reports being on iron therapy in the past and multivitamin. REVIEW OF SYSTEMS: As per HPI, the patient does feel shaky currently and has intermittent palpitations. PAST MEDICAL HISTORY: Alcoholism, anxiety, depression, migraines. PAST SURGICAL HISTORY: Atkins teeth removal. MEDICATIONS: Wellbutrin, naltrexone, Prozac. ALLERGIES: No known drug allergies. SOCIAL HISTORY: He drinks about a fifth of whiskey daily for the last week. He says prior to this, he was sober for about 4 months after going to rehab. He denies any smoking or drug use. He is a . Currently employed. FAMILY HISTORY: No family history of GI malignancies or liver disease. PHYSICAL EXAMINATION: Vital Signs: Temperature is 98.4, heart rate of 106, respiratory rate is 25, blood pressure 115/84, O2 saturation 96% on room air. General: The patient is awake, alert, in no acute distress. HEENT: Sclerae anicteric. Moist mucous membranes. Extraocular motor intact. Neck: Supple. No JVD or lymphadenopathy. Cardiac: Tachycardic, regular. No murmurs. Lungs: Clear to auscultation bilaterally. Abdomen: Obese, soft, nontender, nondistended. Normoactive bowel sounds. No rebound or guarding. Extremities: No clubbing, cyanosis, or edema. Neurologic: Nonfocal. Patient is tremulous and a little anxious. LABS: White count of 12.0, hemoglobin of 10.3 from 13.5 earlier this morning, MCV is 75.7, platelets of 295,000 from 453,000, white count yesterday was 16.2. INR of 1.1. Sodium 138, potassium 3.1, chloride of 91, bicarb 21, BUN of 17, creatinine 1.0, glucose of 189. Total bilirubin of 1.05, AST of 37, ALT of 51, alkaline phosphatase of 118, total protein of 8.9, albumin of 5.0. Urine toxicology is negative. Alcohol level is negative. IMAGING: CT of the abdomen and pelvis shows severe fatty liver, hyperdense gallbladder contracted, may represent gallbladder sludge or dense bile. No inflammatory changes or gallbladder distention. Nonobstructing left renal stone. Chest x-ray unrevealing. Abdominal ultrasound, severe fatty change of the liver. Normal gallbladder. ASSESSMENT AND PLAN: Mr. Anthony Carmona is a 38-year-old gentleman with a past medical history of alcoholism, who presents with intractable nausea and vomiting in the setting of binge drinking, as well as hematemesis. The etiology of his upper gastrointestinal bleed is likely related to a Courtney-Regalado tear, esophagitis, possibly alcoholic gastritis. He does take Excedrin a couple times a week for migraines. His hemoglobin had dropped from 13.5 to 10.3 with fluid resuscitation. All his counts dropped, which likely represents hemodilution. His BUN to creatinine ratio is normal. His hemoglobin is at baseline compared to early this year. He is currently receiving intravenous fluids, Ativan, and a proton pump inhibitor drip. Recommend transitioning to proton pump inhibitor intravenous twice a day, trending his hemoglobin and hematocrit daily. He appears to be withdrawing from alcohol. We will keep him on CIWA. Follow his course clinically. He will ultimately need a diagnostic esophagogastroduodenoscopy. We will check iron studies given his low MCV and microcytic anemia. He denies any weight loss or other red flags. Okay for him to have clear liquids as tolerated. Thank you for this consult. We will follow with you. Please call with any questions or concerns.
[2019-05-28] MEDS: ATIVAN IV PRN ×2 (12:48→22:12)
[2019-05-28 12:53] LABS: IRON SATURATION 36 %; TIBC 676 ug/dL; TOTAL IRON 241 ug/dL (53-167); UNBOUND IRON 435 ug/dL (112-346)
[2019-05-28 14:05] LABS: HEMOGLOBIN 10.2 g/dL (14.0-18.0)
[2019-05-28 14:29] LABS: AGAP 15; BUN 9 mg/dL (8-22); CALCIUM 7.4 mg/dL (8.8-10.2); CHLORIDE 105 mmol/L (98-107); COSMO 281; CREATININE 0.8 mg/dL (0.7-1.2); ESTIMATED GFR > 60; GLUCOSE 116 mg/dL (70-104); MAGNESIUM 2.1 mg/dL (1.5-2.7); PHOSPHORUS 1.7 mg/dL (2.7-4.5); POTASSIUM 3.3 mmol/L (3.5-5.1); SODIUM 141 mmol/L (136-145); TCO2 21 mmol/L (25-35)
[2019-05-28] MEDS ORDERED: LIBRIUM PO ONE (14:29)
[2019-05-28] MEDS: LIBRIUM PO SCH ×2 (14:51→20:38)
[2019-05-28] MEDS ORDERED: POTASSIUM PHOSPHATE 40 MEQ in NS 250 ML IV ONE (15:05)
--- NOTE | 2019-05-28 15:23 | PROGRESS NOTE ---
DATE: 05/28/2019 SUBJECTIVE: Mr. Carmona was admitted early this morning, vomiting blood. A 38-year-old had been treated in our facility in the past for alcohol abuse and withdrawal. Patient states he did quit drinking, actually receive rehab treatment and quit drinking approximately a few months. States about a week ago he had the urge to drink and decided to go to the liquor store and bought a 5th of whiskey. He states that since that time every day for the past week he has drank approximately 750 mL of whiskey. The patient reports that yesterday morning was his last drink of alcohol. States he did stop drinking due to every time he would drink not only alcohol but even water or soda he would immediately vomit the liquid up. Initially he was having some emesis the color of what he drank. He did begin with some what appeared to be coffee-grounds emesis, so admitted to the hospital for: 1. Suspected upper gastrointestinal bleed. Has been having emesis, coffee-ground appearance. 2. Anemia. 3. Alcohol withdrawal. 4. Fluid volume depletion. 5. Hypokalemia. 6. Hypomagnesemia. 7. Transaminitis. Feeling a little better. Moved from the emergency room up to the unit. OBJECTIVE: Temperature 97.5 degrees, pulse 100, respirations 20, blood pressure 128/77. HEENT: Pupils are equal and round. Lungs: Clear in all lung bingham. Cardiovascular: Regular rhythm and rate without murmur or S3. Urine output was 1400 mL. ASSESSMENT AND PLAN: 1. Suspect upper gastrointestinal bleed with nausea. Seems to be doing better. His lab, hematocrit is stable at 33, hemoglobin 10, MCV is 75. Electrolytes, I have supplemented his potassium. Renal function looks good. 2. Alcohol withdrawal. I put him on some benzodiazepines, both Librium and he has Ativan p.r.n. 3. Hypophosphatemia, hypomagnesemia, hypokalemia. We will give him some K-Phos. Make sure he gets some thiamine. cc: Mike Aviles MD
[2019-05-28] MEDS ORDERED: D50W SYRINGE IV PRN (17:33)
[2019-05-28] MEDS: HUMULIN R SUBQ SCH ×2 (17:44→20:36)
[2019-05-28 20:15] LABS: HEMATOCRIT 31.8 % (42.0-52.0); HEMOGLOBIN 9.8 g/dL (14.0-18.0)
[2019-05-29 01:43] LABS: HEMATOCRIT 32.4 % (42.0-52.0)
[2019-05-29] MEDS: LIBRIUM PO SCH ×4 (03:35→22:33)
[2019-05-29] MEDS: NS 1,000 ML IV SCH (03:35)
[2019-05-29] MEDS: ATIVAN IV PRN (03:36)
[2019-05-29] MEDS: HUMULIN R SUBQ SCH ×4 (06:16→21:29)
[2019-05-29 06:25] LABS: BASO# 0.02 X1000 (0.0-0.2); BASO% 0.2 % (0.0-0.8); EOS# 0.04 X1000 (0.0-0.7); EOS% 0.3 % (0.0-10.0); HEMATOCRIT 31.9 % (42.0-52.0); HEMOGLOBIN 9.9 g/dL (14.0-18.0); IMM GRAN# 0.03 X1000 (0.0-0.04); IMM GRAN% 0.3 % (0.0-0.5); LYMPH# 1.51 X1000 (1.2-3.4); LYMPH% 13.2 % (20.5-51.1); MCH 24.1 PG (27-31); MCV 77.6 FL (81-99); MONO# 1.06 X1000 (0.11-0.59); MONO% 9.2 % (1.7-9.3); MPV 9.5 FL (7.4-10.4); NEUT% 76.8 % (42.2-75.2); PLT 232 X1000 (130-400); RBC 4.11 XMIL (4.7-6.1); WBC 11.46 X1000 (4.8-10.8)
[2019-05-29 06:58] LABS: AGAP 12; BUN 4 mg/dL (8-22); CALCIUM 7.5 mg/dL (8.8-10.2); CHLORIDE 106 mmol/L (98-107); COSMO 275; CREATININE 0.6 mg/dL (0.7-1.2); ESTIMATED GFR > 60; GLUCOSE 103 mg/dL (70-104); MAGNESIUM 1.7 mg/dL (1.5-2.7); PHOSPHORUS 1.8 mg/dL (2.7-4.5); POTASSIUM 3.1 mmol/L (3.5-5.1); SODIUM 139 mmol/L (136-145); TCO2 21 mmol/L (25-35)
[2019-05-29 07:06] LABS: FREE T4 1.15 ng/dL (0.93-1.70); TSH 1.16 uIUmL (0.27-4.20)
[2019-05-29] MEDS: M.V.I.-12 10 ML, FOLIC ACID 1 MG, MAGNESIUM SULFATE 1 GM, THIAMINE 100 MG in NS 1,000 ML IV SCH (08:41)
[2019-05-29] MEDS: VITAMIN B-1 PO SCH (08:43)
[2019-05-29 10:11] LABS: HEPATITIS PROFILE ACUTE SEE COMMENTS
[2019-05-29] MEDS: PROTONIX PO SCH ×2 (10:26→19:09)
--- NOTE | 2019-05-29 14:45 | GASTROENTEROLOGY PROGRESS NOTE ---
DATE: 05/29/2019 SUBJECTIVE: Mr. Carmona is a 38-year-old male who was resting in bed. Alert and oriented x3. He denied having any nausea or vomiting, but c/o generalized abdominal tenderness. He had one bowel movement which was liquid in consistency. He stated that he was feeling much, much better than what he was when he came to the hospital. OBJECTIVE: Vital Signs: Temperature 98.9 degrees, pulse is 114, respirations of 16, blood pressure is 144/96, oxygen saturation is 98% on room air. Weight is 188.9 pounds. BMI is 27.2 kg/m2. General: He is alert, oriented x3, and in no acute distress. HEENT: Pale conjunctivae. sclera icteric. PERRL. Neck: Supple. Lungs: Clear to auscultation bilaterally in the anterior and posterior bingham. Cardiac: He is tachycardic. No murmurs, rubs, or gallops heard on auscultation. Abdomen: Soft, tender, and nondistended. Active bowel sounds heard in all 4 quadrants. Extremities: No clubbing, cyanosis, or edema noted, pedal pulses 2+ present. Neurological: Alert and oriented x3. LABS: WBC 11.46, RBCs 4.11, hemoglobin 9.9, hematocrit 31.9, platelet count is 232,000. Sodium is 139, potassium is 3.1, chloride is 106, carbon dioxide is 21, anion gap is 12, BUN is 4, creatinine is 0.6, his glucose is 103, calcium is 7.5, phosphorus is 1.8, and magnesium is 1.7. IMAGING: Abdominal ultrasound showed severe fatty changes of the liver, normal gallbladder. Abdomen and the pelvis CT showed severe fatty liver, hypodense gallbladder, nonobstructive left renal stone. Chest x-ray cannot exclude right hilum. IMPRESSION: Alcohol withdrawal. Gastrointestinal bleed. Hematemesis. Nausea/Vomiting Anemia Alcohol abuse PLAN: The patient is currently on a clear liquid diet, NPO after midnight, we will do an EGD tomorrow for his GI bleed. He is receiving IV fluids MVI @ 150 mL per hour. He is getting vitamin B 100 mg p.o. For his withdrawals, he is on Librium and Ativan for his anxiety per his primary care team, Zofran for his nausea and vomiting, and we will continue the GI prophylaxis, Protonix 40 mg p.o. b.i.d for his GI bleed. The patient's hemoglobin and hematocrit today are 9.9 and 31.9, we will continue to monitor his CBCs and BMPs and continue to follow the plan of care per primary care team. We have discussed the risk of alcohol abuse, patient acknowledges understanding of the instructions. Further plan of care will be based on the EGD findings. This plan was discussed with Dr. Peña. Please call us for any further questions or concerns. Dictated by JAMI Cui for Mario Alberto Peña MD cc: Mario Alberto Peña MD I have seen and examined the patient myself and I agree with the above plan of care. I have discussed the above with the patient and all questions were answered. Please call us with any further questions MTDD
--- NOTE | 2019-05-29 18:03 | PROGRESS NOTE ---
DATE: 05/29/2019 SUBJECTIVE: Mr. Carmona was awake and alert. He decided to take a nap and so he was sleeping when I saw him. He was eating well. OBJECTIVE: Vital signs: Temp 98.7 degrees, pulse 97, respirations 15, blood pressure 130/87. HEENT: Pupils are equal and round. Lungs: Clear in all lung bingham. Cardiovascular: Regular rhythm and rate without murmur or S3. Urine output was close to 4000 mL. ASSESSMENT AND PLAN: 1. Alcohol withdrawal. Seems to be doing fairly well. Continue benzodiazepines. 2. Alcoholic gastrointestinal bleed. Abdominal ultrasound showed fatty changes of the liver, normal gallbladder. Abdomen and pelvic CT showed fatty liver, hypodense gallbladder, nonobstructing left ureter stone. So, the patient is currently on a clear diet which we advanced. He is getting thiamine 100 mg p.o. daily. For his withdrawals he is getting Librium and Ativan and he is on Protonix 40 mg b.i.d. So possibility of Courtney-Regalado tear, esophagitis, alcoholic gastritis. I think the plan is to do an EGD tomorrow. I do not see any change in his orders at this time. cc: Mike Aviles MD
[2019-05-30] MEDS: PROTONIX PO SCH ×2 (06:16→18:02)
[2019-05-30] MEDS: HUMULIN R SUBQ SCH ×4 (06:24→20:00)
[2019-05-30] MEDS: LIBRIUM PO SCH ×3 (06:35→22:25)
[2019-05-30] MEDS: M.V.I.-12 10 ML, FOLIC ACID 1 MG, MAGNESIUM SULFATE 1 GM, THIAMINE 100 MG in NS 1,000 ML IV SCH (08:40)
[2019-05-30] MEDS: VITAMIN B-1 PO SCH (08:43)
--- NOTE | 2019-05-30 10:17 | PROGRESS NOTE ---
DATE: 05/30/2019 SUBJECTIVE: Mr. Carmona is sleeping. He did not sleep much last night. Plan is get an EGD today. He has not had any further bleeding or nausea. He is tolerating eating. PHYSICAL EXAMINATION: Temperature 98.3 degrees, pulse 90, respirations 19, blood pressure 125/96. Pupils are equal round. Lungs are clear in all lung bingham. Cardiovascular regular rhythm and rate without murmur or S3. Abdomen is soft. Skin is warm and dry. Urine output 10 L. ASSESSMENT AND PLAN: 1. Alcohol withdrawal. Seems to be doing well. He is on benzodiazepines, which we have held. 2. Alcoholic gastroenteritis, or gastrointestinal bleed. He is due to get an EGD today. LABORATORY DATA: From yesterday white count 11,460 hematocrit was 31, hemoglobin 9.9, platelet count 232,000. Blood sugars 106, 110, 106. cc: Mike Aviles MD
[2019-05-30] MEDS ORDERED: XYLOCAINE-MPF 2% ONE (13:56)
[2019-05-30] MEDS ORDERED: DIPRIVAN 1% ONE (13:56)
--- NOTE | 2019-05-30 15:06 | OPERATIVE NOTE ---
PROCEDURE DATE: 05/30/2019 PROCEDURE PERFORMED: Esophagogastroduodenoscopy. PREOPERATIVE DIAGNOSIS: Atypical chest pain, reflux, dyspepsia, abdominal pain. POSTOPERATIVE DIAGNOSIS: Normal examination. DESCRIPTION OF PROCEDURE: After informed consent and adequate intravenous sedation, the scope was introduced in the esophagus, which was normal. There is 1 cm sliding hernia. The stomach itself is normal. Duodenum is normal. Scope is withdrawn, retroflexed. Duodenum normal. The scope was withdrawn. The patient tolerated the procedure well without any immediate complications. cc: Hannah Ny MD
[2019-05-31] MEDS: LIBRIUM PO SCH ×2 (05:39→15:03)
[2019-05-31 05:59] LABS: HEMATOCRIT 38.5 % (42.0-52.0); HEMOGLOBIN 12.1 g/dL (14.0-18.0)
[2019-05-31] MEDS: HUMULIN R SUBQ SCH ×2 (06:18→11:27)
[2019-05-31] MEDS: PROTONIX PO SCH (06:22)
[2019-05-31] MEDS: M.V.I.-12 10 ML, FOLIC ACID 1 MG, MAGNESIUM SULFATE 1 GM, THIAMINE 100 MG in NS 1,000 ML IV SCH (09:47)
[2019-05-31] MEDS: VITAMIN B-1 PO SCH (09:47)
--- NOTE | 2019-05-31 10:48 | PROGRESS NOTE ---
DATE: 05/31/2019 SUBJECTIVE: Mr. Carmona is feeling good. He is eating breakfast this morning. OBJECTIVE: Remains afebrile, temperature 97.5 degrees, pulse 80, respirations blood pressure 137/92. Pupils are equal and round. Lungs: Clear in all lung bingham. Cardiovascular: Regular rhythm and rate without murmur or S3. Abdomen: Soft. Skin: Warm and dry. Urine output is 4000 mL. Blood sugar 106, 96, 156. ASSESSMENT AND PLAN: 1. Had an esophagogastroduodenoscopy normal examination. No further sign of bleeding. 2. He came in with alcohol withdrawal and history of possible alcoholic gastroenteritis. I think he is through with the alcohol withdrawals and seems to be feeling much better. 3. His lab this morning hematocrit 38 hemoglobin is 12. Chemistries look good so hope to let him go home today. DISCHARGE MEDICATIONS: I think we can quit the Librium. We may keep him on Protonix 40 mg once a day for a bit. I do not know that he was on any other home medications. He was taking Wellbutrin 150 mg b.i.d., Wellbutrin XL, so will continue that Prozac 30 mg a day and he was on ReVia 50 mg p.o. daily, which I guess he can continue. He is to follow up with his. He does not have a primary care physician, but he needs to find. I will do a discharge summary and hopefully he can go home today. cc: Mike Aviles MD
--- NOTE | 2019-05-31 13:54 | GASTROENTEROLOGY PROGRESS NOTE ---
DATE: 05/31/2019 SUBJECTIVE: Mr. Carmona is a 38-year-old male, resting in bed. Denies any nausea, vomiting, or diarrhea, and stated that he was able to tolerate his breakfast well. OBJECTIVE: Vital Signs: Temperature 98.3, pulse is 88, respirations 13, blood pressure 121/82, oxygen saturation is 95% on room air. He is alert. His weight is 188.9 pounds. BMI is 27.2 kg/m2. General: He is alert, oriented x3, and in no acute distress. HEENT: Pale conjunctivae. No icterus. PERRL. Neck: Supple. Lungs: Clear to auscultation in anterior and posterior bingham. No abnormal breath sounds heard. Cardiovascular: Regular rate and rhythm. No murmurs, rubs, or gallops heard on auscultation. Abdomen: Soft, nontender, nondistended. Active bowel sounds heard in all 4 quadrants. Extremities: No clubbing, cyanosis, or edema noted. Pedal pulses 2+ present bilaterally. Neurological: Alert, oriented x3. LAB: WBCs 7.46, RBC is 4.11, hemoglobin is 12.1, and hematocrit is 38.5, platelet count is 232,000. His labs on 05/29/2019 for chemistry showed sodium 139, potassium 3.1, chloride 106, carbon dioxide 21, anion gap is 12, BUN is 4, creatinine is 0.6. Abdominal ultrasound on 05/28 showed severe fatty change of the liver, normal gallbladder. Abdominal CT and pelvis on 05/28 showed severe fatty liver, hypodense gallbladder, nonobstructive left renal stone. IMPRESSION AND PLAN: Alcohol withdrawal GI bleed Hematemesis Nausea and vomiting Anemia Alcohol abuse PLAN: We did an EGD yesterday and it showed that he has a 1 cm sliding hernia. The patient is on a regular diet and he is able to tolerate the diet. We will continue antiemetic Zofran PRN for his nausea. He is receiving Librium for his withdrawal and Ativan for his anxiety as per his primary care provider. He is getting the MVI fluid at 150 mL, continue him with Protonix 40 mg PO twice a day and continue it for 3 months. As for his primary care provider, he may get discharged, so we have advised the patient to come and follow up as an outpatient at our clinic in 4 to 6 weeks after his discharge. We have advised patient to give up drinking alcohol, patient verbalizes understanding of the instructions. This plan was discussed with Dr. Peña. Please call us with any further questions or concerns. Dictated by JAMI Cui for Mario Alberto Peña MD cc: Mario Alberto Peña MD Patient seen and examined and I agree with the above plan of care. Discussed the above plan of care with the patient and all questions were answered. Please call us with any further questions. SHIRLEY
--- NOTE | 2019-05-31 16:08 | DISCHARGE SUMMARY ---
ADMISSION DATE: 05/28/2019 DISCHARGE DATE: 05/31/2019 HOSPITAL COURSE: Mr. Carmona is a 38-year-old who presented. He has no provider here; I think he has a provider [facility] the [facility], but he is vomiting blood. He is a 38-year-old who has been treated in our facility in the past for alcohol abuse and withdrawal. The patient states he had quit drinking, actually had received rehab treatment. Quit drinking for approximately a few months, then a week ago he had an urge to drink, decided to go to the liquor store and buy a fifth of whiskey. States that since that time, every day for a week, he drank approximately 750 mL of whiskey. The patient states that yesterday morning before admission, he had a drink of alcohol, but he did stop drinking due to every time he would drink, not only alcohol, but water and soda, he would immediately vomit the liquid back up. States he was having emesis of the color of what he drank, and then he began having coffee-ground emesis and did report some cristy bright red blood in the emesis at times, reported the same slight abdominal pain in the periumbilical area. Denies any epigastric pain. Denied any hematochezia or melena. Denied any other mjur-kry-rmphyci medications, such as aspirin or NSAIDs. Denied any previous known history of gastrointestinal bleeding in the past. Did report history of alcohol withdrawal in the past with delirium tremens. Denies any headache, dizziness, chest pain, shortness of breath, diarrhea, dysuria, pain, or numbness and tingling in extremities. On arrival to the emergency room, the patient was noted to be quite tachycardic with a rate of 150 and had some tremors, very anxious to perform a chest x-ray, and could not exclude abnormal right hilum. Did recommend follow-up and two-view chest x-ray. Had abdominal pelvic CT which showed some gallbladder sludge, fatty liver, hyperdense gallbladder contents. Subsequent ultrasound of the abdomen performed, which did show fatty liver change. He did have a normal gallbladder, though. The patient is slightly anemic. Hemoglobin and hematocrit were followed and, on presentation, hemoglobin was 10.3, hematocrit 32, and so was admitted to the unit. PAST MEDICAL HISTORY: 1. Anxiety. 2. Depression. 3. Alcohol abuse. PAST SURGICAL HISTORY: Does not report any surgical history. ADMISSION/DISCHARGE DIAGNOSIS: Suspected upper gastrointestinal bleed, and so concerned about possible Courtney-Regalado tear, gastritis, peptic ulcers, even esophageal varices. He was watched and did not show any further signs of bleeding. Hematocrit and hemoglobin remained stable. He did go through alcohol withdrawal, but I do not believe he went through delirium tremens. We provided him with Librium taper and some Ativan as needed. Replaced his potassium and magnesium. He had mild elevation of transaminitis, which I think is alcoholic hepatitis. He underwent an esophagogastroduodenoscopy on 05/30, which was a normal examination. He was able to eat and had no further nausea. The esophagogastroduodenoscopy did show 1 sliding hiatal hernia. The patient tolerated regular diet. He came off the Librium. We will keep him on Prilosec 40 mg daily and a multivitamin. He wants to go home. I think it is okay for him to go back to work tomorrow. Hematocrit on 05/31, the day of discharge, was 38, hemoglobin 12. We will discharge him home. cc: Mike Aviles MD
[2019-05-31 16:49] VITALS: BP 137/95
== END 2019-05-31 16:30 | disposition home or self-care (01) | DRG 378 ==
LOC: ED 00:05 → EDIPHOLD 07:15 → SUATTDRO 07:15 → ICU 11:26
PROVIDERS: ATTEND Emergency Medicine